=== PATIENT | male | born 1940 | race Caucasian/White ===

== ENCOUNTER → 2023-07-27 06:27 | Day surgery (SDC) | payer MEDICARE, SELFPAY | LOC: GI 06:27 | PROVIDERS: ATTENDING PHYSICIAN Internal Medicine Gastroenterology | DX: R13.10 Dysphagia, unspecified (principal); K22.89 Other specified disease of esophagus; Q39.9 Congenital malformation of esophagus, unspecified; K44.9 Diaphragmatic hernia without obstruction or gangrene; K26.9 Duodenal ulcer, unspecified as acute or chronic, without hemorrhage or perforation; K29.50 Unspecified chronic gastritis without bleeding; K20.80 Other esophagitis without bleeding | CPT/HCPCS: 43239; 88305; 88342 ==

== ENCOUNTER → 2023-09-04 07:13 | Outpatient (REF) | payer MEDICARE, SELFPAY | LOC: RCS 07:13 | PROVIDERS: ATTENDING PHYSICIAN Family Medicine; FAMILY PHYSICIAN Family Medicine; OTHER PHYSICIAN Internal Medicine | DX: R06.09 Other forms of dyspnea (principal); I10 Essential (primary) hypertension; R01.1 Cardiac murmur, unspecified | CPT/HCPCS: 78452; 93017; A9500 ==

== ENCOUNTER → 2024-06-27 11:04 | Outpatient (REF) | payer MEDICARE, SELFPAY | LOC: HWRAD 11:04 | PROVIDERS: ATTENDING PHYSICIAN Family Medicine | DX: M25.552 Pain in left hip (principal); G89.29 Other chronic pain; M54.50 Low back pain, unspecified | CPT/HCPCS: 72110; 73501 ==

== ENCOUNTER → 2024-09-07 06:49 | Outpatient (REF) | payer MEDICARE, SELFPAY | LOC: MRI 3T 06:49 | PROVIDERS: ATTENDING PHYSICIAN Family Medicine | DX: M48.07 Spinal stenosis, lumbosacral region (principal); R26.89 Other abnormalities of gait and mobility | CPT/HCPCS: 72148 ==

== ENCOUNTER 2024-10-30 06:21 | Day surgery (SDC) | payer MEDICARE, SELFPAY ==
[2024-10-24 13:22] VITALS: BMI 26.4
--- NOTE | 2024-10-27 15:14 | PTCARENOTE ---
Abnormal EKG on 10/24/24. Dr. Cabral aware. No interventions needed.
[2024-10-30] VITALS (19 sets, daily range): BP systolic 118–159; BP diastolic 53–79; BMI 26.4
[2024-10-30] MEDS: NORMOSOL-R/PLASMALYTE-A 1000 IV (08:58)
--- NOTE | 2024-10-30 11:43 | W.PN.ADMIT ---
Progress Note - Admit
Progress Note - Admit
pt s/p TURP
admit for CBI
[2024-10-30 12:34] LABS: Hematocrit 42.6 % (39.0-52.0); Hemoglobin 14.3 g/dL (13.0-18.0); Mean Corp Hgb Conc. 33.6 g/dL (33.0-37.0); Mean Corpuscular Hgb 31.8 pg (27.0-31.0); Mean Corpuscular Volume 94.9 fL (80.0-94.0); Platelet Count 125 10^3/uL (130-400); Red Blood Cell Count 4.49 10^6/uL (4.70-6.10); Red Cell Dist. Width 13.2 % (11.5-14.5); White Blood Cell Count 6.8 10^3/uL (4.8-10.8)
[2024-10-30 12:51] LABS: Blood Urea Nitrogen 18 mg/dl (9-20); Calcium 8.4 mg/dl (8.4-10.2); Carbon Dioxide 28 mmol/L (22-30); Chloride 104 mmol/L (98-107); Estimated Creatinine Clearance 51 ml/min; Glucose 130 mg/dl (70-99); Potassium 4.4 mmol/L (3.5-5.1); Sodium 138 mmol/L (135-145); eGFR > 60.00
[2024-10-30] MEDS: NSS 1000 IV (14:49)
--- NOTE | 2024-10-30 15:24 | PTCARENOTE ---
Received patient from PACU via bed around 1425 in stable condition. CBI instilling through 3 way catheter with traction draining clear pink urine. Patient oriented to room. Call swanson in reach.
--- NOTE | 2024-10-30 16:09 | PTCARENOTE ---
Catheter traction released at 1600 as ordered.
[2024-10-30] MEDS: VIBRAMYCIN PO (20:30)
[2024-10-31 03:05] VITALS: BP 124/63
[2024-10-31] MEDS: NSS 1000 IV (03:11)
[2024-10-31 06:56] LABS: Blood Urea Nitrogen 17 mg/dl (9-20); Calcium 8.3 mg/dl (8.4-10.2); Carbon Dioxide 25 mmol/L (22-30); Chloride 108 mmol/L (98-107); Estimated Creatinine Clearance 51 ml/min; Glucose 106 mg/dl (70-99); Potassium 4.4 mmol/L (3.5-5.1); Sodium 138 mmol/L (135-145); eGFR > 60.00
[2024-10-31 07:00] VITALS: BP 134/64
[2024-10-31 07:04] LABS: Hematocrit 40.1 % (39.0-52.0); Hemoglobin 13.6 g/dL (13.0-18.0); Mean Corp Hgb Conc. 33.9 g/dL (33.0-37.0); Mean Corpuscular Hgb 32.1 pg (27.0-31.0); Mean Corpuscular Volume 94.6 fL (80.0-94.0); Mean Platelet Volume 10.4 fL (7.4-10.4); Platelet Count 126 10^3/uL (130-400); Red Blood Cell Count 4.24 10^6/uL (4.70-6.10); Red Cell Dist. Width 13.2 % (11.5-14.5); White Blood Cell Count 9.5 10^3/uL (4.8-10.8)
--- NOTE | 2024-10-31 08:03 | W.PN.URO.CBU ---
Today's Communication / Plan
-
routine post TUR care
anticipate TOV tomorrow
Assessment / Plan
-
s/p TURP
UOOB
regular diet
wean CBI
Diagnosis
-
Date of Service: October 31, 2024
-
Patient Diagnosis:
bph
Post Op Day:
turp 5/8
Subjective
-
stable
urine light pink on moderate cbi
Objective
-
Vital Signs
Temp Pulse Resp BP Pulse Ox
97.7 F 60 16 134/64 96
10/31/24 07:00 10/31/24 07:00 10/31/24 07:00 10/31/24 07:00 10/31/24 07:00
Intake and Output
10/30/24 10/31/24 11/01/24
06:59 06:59 06:59
Intake Total 2640 / 2640
Output Total 4650 / 4650 1750 / 1750
Balance -2009 / -2009 -1750 / -1750
Intake:
Oral fluids 1280 / 1280
IV fluids (Total) 1360 / 1360
Normosol 400 / 400
Output:
True Urine Output from CBI 4650 / 4650 1750 / 1750
Laboratory Results
10/31/24 05:37
10/31/24 05:37
Review of Systems
-
Constitutional: No Symptoms
Respiratory: No Symptoms
Cardiac: No Symptoms
Abdomen/GI: Other (mild reflux)
Physical Exam
-
General - no acute distress
Abdomen - soft, non-tender
Genitalia - normal- conde in place
Skin - warm & dry with no rash
Neuro - AOx3, no motor deficits
--- NOTE | 2024-10-31 09:35 | CM ---
Cm met with patient in room. Patient confirmed demographics. Patient lives independently with . Patient does not have a history of VN< SNF or DME. Patient uses [facility].
Patient is unsure if he will need VN support should he be discharged with a conde. CM will follow for needs/
PLAN: home no needs vs. Home with VN.
[2024-10-31] MEDS: NORVASC 2.5 MG PO (09:57)
[2024-10-31] MEDS: VIBRAMYCIN 100 MG PO ×2 (09:57→20:08)
[2024-10-31] MEDS: FLOMAX 0.4 MG PO (09:58)
[2024-10-31 11:00] VITALS: BP 120/50
--- NOTE | 2024-10-31 22:08 | PTCARENOTE ---
care completed for 22:00
[2024-10-31 23:30] VITALS: BP 116/61
[2024-11-01 07:00] VITALS: BP 129/69
[2024-11-01] MEDS: FLOMAX 0.4 MG PO (08:10)
[2024-11-01] MEDS: VIBRAMYCIN 100 MG PO (08:10)
[2024-11-01] MEDS: NORVASC 2.5 MG PO (08:10)
--- NOTE | 2024-11-01 11:51 | CM ---
Patient stable for d/c today
Met w/ patient bedside, agreeable to d/c
IMM verbally reviewed, copy given to patient, copy on chart
No CM needs identified at this time
Plan: Home, no needs
[2024-11-01 13:38] VITALS: BP 133/75
== END 2024-11-01 13:53 | disposition home or self-care (01) ==
LOC: SDS 06:21
PROVIDERS: ATTENDING PHYSICIAN Specialist; FAMILY PHYSICIAN Family Medicine
DX: N40.0 Benign prostatic hyperplasia without lower urinary tract symptoms (principal); N32.89 Other specified disorders of bladder
CPT/HCPCS: 52601; 88305; 80048; 85027; 88344

== ENCOUNTER → 2024-12-24 12:46 | Outpatient (REF) | payer MEDICARE, SELFPAY | LOC: RCS 12:46 | PROVIDERS: ATTENDING PHYSICIAN Internal Medicine; FAMILY PHYSICIAN Family Medicine | DX: Z01.810 Encounter for preprocedural cardiovascular examination (principal); I35.1 Nonrheumatic aortic (valve) insufficiency | CPT/HCPCS: 93306 ==

== ENCOUNTER 2024-12-31 06:23 | Day surgery (SDC) | payer MEDICARE, SELFPAY ==
[2024-12-24 12:17] VITALS: BMI 26.5
[2024-12-25 10:41] VITALS: BMI 26.5
[2024-12-31] VITALS (8 sets, daily range): BP systolic 117–165; BP diastolic 55–87; BMI 26.5
[2024-12-31] MEDS: TYLENOL 1000 MG PO (09:14)
[2024-12-31] MEDS: CELEBREX 200 MG PO (09:14)
[2024-12-31] MEDS: METHOCARBAMOL 1500 MG PO (09:15)
[2024-12-31] MEDS: LYRICA 150 MG PO (09:15)
[2024-12-31] MEDS: NORMOSOL-R/PLASMALYTE-A 1000 IV (09:15)
== END 2024-12-31 13:15 | disposition home or self-care (01) ==
LOC: SDS 06:23
PROVIDERS: ATTENDING PHYSICIAN Orthopaedic Surgery Orthopaedic Surgery of the Spine
DX: M48.061 Spinal stenosis, lumbar region without neurogenic claudication (principal)
CPT/HCPCS: 63047; 72020

== ENCOUNTER → 2025-06-02 13:52 | Outpatient (REF) | payer MEDICARE, SELFPAY | LOC: RAD 13:52 | PROVIDERS: ATTENDING PHYSICIAN Family Medicine | DX: R05.3 Chronic cough (principal) | CPT/HCPCS: 71046 ==